=== PATIENT | male | born 1970 | race Caucasian/White ===

== ENCOUNTER 2021-01-07 10:43 | Emergency (ER) | payer OTHER ==
[~2021-01-07] VITALS: Ht 188 cm; Wt 88.0 kg
[2021-01-07 11:52] LABS: BASOPHILS % (AUTO) 1 % (0-1); EOSINOPHILS % (AUTO) 2 % (1-7); LYMPHOCYTES % (AUTO) 22 % (22-44); MEAN CORPUSCULAR HEMOGLOBIN 31.2 pg (27.5-34.5); MEAN CORPUSCULAR HGB CONC 34.7 g/dL (33.2-36.2); MEAN PLATELET VOLUME 8.2 fL (7.4-10.4); MONOCYTES % (AUTO) 8 % (2-9); NEUTROPHILS % (AUTO) 68 % (42-75); PLATELET COUNT 219 x10^3/uL (130-400); RED BLOOD COUNT 5.02 x10^6/uL (4.38-5.82); RED CELL DISTRIBUTION WIDTH 12.7 % (9.4-14.8)
[2021-01-07 11:58] LABS: MD NO
--- NOTE | 2021-01-07 12:02 | NUR ---
PT UPRIGHT ON GURNEY AWAKE & CALM, NAD/VSS, COMFORT MEASURES PROVIDED, CALL LIGHT WITHIN REACH.
[2021-01-07 12:05] LABS: ALANINE AMINOTRANSFERASE 28 U/L (12-78); ANION GAP 2 mmol/L (5-15); CALCIUM 8.7 mg/dL (8.5-10.1); CHLORIDE 107 mmol/L (98-107); CREATININE 0.73 mg/dL (0.7-1.3)
[2021-01-07 12:07] LABS: ALKALINE PHOSPHATASE 66 U/L (45-117); TOTAL PROTEIN 6.7 g/dL (6.4-8.2)
--- NOTE | 2021-01-07 13:05 | NUR ---
PT REMAINS UPRIGHT ON GURNEY AWAKE & CALM, NAD/VSS, NO NEEDS AT THIS TIME, CALL LIGHT WITHIN REACH.
[2021-01-07 13:22] LABS: MICROSCOPIC NOT IND
--- NOTE | 2021-01-07 14:04 | NUR ---
PT UPRIGHT ON GURNEY AWAKE & CALM, NAD/VSS, NO NEEDS AT THIS TIME, CALL LIGHT WITHIN REACH.
[2021-01-07 15:17] VITALS: BP 121/80
--- NOTE | 2021-01-07 15:18 | NUR ---
Patient given discharge instructions and Rx, they have confirmed that they understand the instructions. Patient ambulatory with steady gait.
== END 2021-01-07 15:42 | disposition home or self-care (01) ==
LOC: ED 15:10
DX: R10.12 Left upper quadrant pain (principal); R19.7 Diarrhea, unspecified; K59.00 Constipation, unspecified
CPT/HCPCS: 36415; 71045; 76705; 80053; 81003; 83690; 85025; 93005; 99285